=== PATIENT | male | born 1990 | race Caucasian/White ===

== ENCOUNTER 2021-09-01 16:12 | Emergency (ER) | payer SELFPAY ==
[2021-09-01 16:23] VITALS: BP 118/71; PULSE 58; RESP 16; TEMP 36.8; O2SAT 98; BMI 25.1
--- NOTE | 2021-09-01 16:35 | HMH.EDUTC ---
[facility] [place] Clinical Impression: Periorbital cellulitis of left eye Disposition: Home, Self-Care Condition on Discharge: Good Instructions: DI for Cellulitis -- Adult Additional Instructions: Warm compresses Prescriptions: Amoxicillin/Potassium Clav [Augmentin 875-125 Tablet] 1 tab PO Q12H 10 Days #20 tab Transmission Status: Pending to [id number] Ofloxacin 5 drp OP QID 7 Days #1 ml Transmission Status: Pending to [id number] Referrals: Provider,Referral, [Primary Care Provider] - Time of Disposition: 16:50 Medical Decision Making - Naveen Inquiry Pt receiving controlled substance: No [facility] [place] - General Stated complaint: Left eye swollen and red Time Seen by Provider: 09/01/21 16:35 - History of Present Illness Provider Complaint: Woke up with pain and swelling in left eyelid today. Vision is blurry, but he thinks it is because the swollen lid is obscuring his vision. He is blind in his right eye. No fever. No drainage. Onset (ago): day(s) (1) Location: eyes Relieving factors: none Exacerbating factors: none Associated symptoms: denies other symptoms Treatments prior to arrival: none - Related Data Home Medications Medication Instructions Recorded Confirmed Gabapentin 300 mg PO DAILY 09/01/21 09/01/21 Previous Rx's Medication Instructions Recorded Amoxicillin/Potassium Clav 1 tab PO Q12H 10 Days #20 tab 09/01/21 [Augmentin 875-125 Tablet] Ofloxacin 5 drp OP QID 7 Days #1 ml 09/01/21 Allergies Allergy/AdvReac Type Severity Reaction Status Date / Time No Known Allergies Allergy Verified 09/01/21 16:23 [facility] History - Hepatitis A Screen Attestation statement:: This patient has been screened for Hepatitis A risk factors. I have reviewed the patient's past medical history: Yes - Social History Smoking Status: Current every day smoker Tobacco Type: cigarettes # Packs/Day (cigarettes): 1 Alcohol Intake: never Substance Use Type: marijuana Occupational Status: other ROS Obtained: Yes All systems reviewed & no additional complaints - Eyes Eyes: Reports as per HPI Physical Exam - General General appearance: alert, in no apparent distress - Head Head exam: normocephalic - Eye Eye exam: Present: periorbital swelling - Chest Chest inspection: Present: normal inspection - Respiratory Respiratory exam: Present: normal lung sounds bilaterally - Cardiovascular Cardiovascular exam: Present: regular rate, normal rhythm - Neurological Exam Neurological exam: Present: alert, oriented X3 - Psychiatric Psychiatric exam: Present: normal affect, normal mood - Skin Skin exam: Present: warm, dry, intact
[2021-09-01 16:50] VITALS: BP 118/71; PULSE 58; RESP 18; TEMP 36.8
== END 2021-09-01 16:50 | disposition home or self-care (01) ==
PROVIDERS: Emergency Provider Physician Assistant
DX: L03.213 Periorbital cellulitis (principal); F17.210 Nicotine dependence, cigarettes, uncomplicated; F12.10 Cannabis abuse, uncomplicated
CPT/HCPCS: 96372; 99202; G0463